=== PATIENT | female | born 1955 | race Caucasian/White ===

== ENCOUNTER → 2024-01-01 09:01 | Outpatient (REF) | payer MEDICARE, BC, SELFPAY | LOC: DHCBS HW 09:01 | PROVIDERS: ATTENDING PHYSICIAN Nuclear Medicine Nuclear Cardiology; FAMILY PHYSICIAN Internal Medicine | DX: R06.02 Shortness of breath (principal) | CPT/HCPCS: 93306 ==

== ENCOUNTER → 2024-01-04 09:07 | Outpatient (REF) | payer MEDICARE, BC, SELFPAY | LOC: PAVMRI 09:07 | PROVIDERS: ATTENDING PHYSICIAN Physician Assistant Surgical; FAMILY PHYSICIAN Internal Medicine | DX: M25.511 Pain in right shoulder (principal) | CPT/HCPCS: 73221 ==

== ENCOUNTER → 2024-01-25 12:09 | Outpatient (REF) | payer MEDICARE, BC, SELFPAY | LOC: RCS 12:09 | PROVIDERS: ATTENDING PHYSICIAN Nuclear Medicine Nuclear Cardiology; FAMILY PHYSICIAN Internal Medicine | DX: R06.02 Shortness of breath (principal); E10.9 Type 1 diabetes mellitus without complications; R01.1 Cardiac murmur, unspecified | CPT/HCPCS: 93017; 93350 ==

== ENCOUNTER → 2024-08-09 11:47 | Outpatient (REF) | payer MEDICARE, BC, SELFPAY | LOC: HWRAD 11:47 | PROVIDERS: ATTENDING PHYSICIAN Podiatrist Foot & Ankle Surgery; FAMILY PHYSICIAN Internal Medicine | DX: M84.375A Stress fracture, left foot, initial encounter for fracture (principal) | CPT/HCPCS: 73630 ==